=== PATIENT | female | born 1945 | race Caucasian/White ===

== ENCOUNTER → 2021-02-12 | Outpatient (CLI) | payer MEDICARE | LOC: EXRD 09:45 | DX: M19.041 Primary osteoarthritis, right hand (principal); M19.042 Primary osteoarthritis, left hand; M25.542 Pain in joints of left hand; M25.541 Pain in joints of right hand; M85.842 Other specified disorders of bone density and structure, left hand; M85.841 Other specified disorders of bone density and structure, right hand | CPT/HCPCS: 73130 ==